=== PATIENT | male | born 1990 | race Caucasian/White ===

== ENCOUNTER 2020-04-18 09:23 | Emergency (ER) | payer OTHER, SELFPAY ==
[2020-04-18 09:35] VITALS: BP 162/95; PULSE 82; RESP 17; TEMP 36.4; O2SAT 97; BMI 28.2
--- NOTE | 2020-04-18 09:48 | XR_ITS ---
EXAMINATION: XR KNEE, RIGHT CLINICAL INFORMATION: Status post running/twisting injury. COMPARISON: None TECHNIQUE: Four views of the right knee. FINDINGS: The tricompartment joint space is maintained. No visible acute fracture, dislocation or subluxation. No loose bodies or joint effusion seen. XR/XR knee RT 4V IMPRESSION: Unremarkable right knee exam.
--- NOTE | 2020-04-18 09:49 | ED_ITS ---
HPI - Extremity Injury (Lower) General Chief Complaint: Extremity Injury, Lower Stated Complaint: knee injury Time Seen by Provider: 04/18/20 09:30 Source: patient Mode of arrival: ambulatory History of Present Illness HPI Narrative: 29-year-old male presenting to ED complaining of right knee pain s/p twisting injury yesterday. Patient reports he was running when landed on foot wrong way and heard a large pop in right knee. Reports pain with movement/ bending. Denies direct trauma or injury to knee, numbness, tingling, weakness, injury to other area MD complaint: knee injury Related Data Previous Rx's Medication Instructions Recorded naproxen 500 mg PO BID PRN 10 Days #20 tab 04/18/20 Allergies Allergy/AdvReac Type Severity Reaction Status Date / Time Sulfa (Sulfonamide Allergy Unknown Hives Verified 04/18/20 09:38 Antibiotics) No Known Allergies Allergy Unverified 03/10/20 16:57 Sulfacet-R Allergy Unknown Hives Uncoded 04/18/20 09:38 Sulfamethoxazole Allergy Unknown rash Uncoded 07/06/19 00:00 Review of Systems Review of Systems: Constitutional: No Weight loss, No Fever, No Chills Musculoskeletal: +joint pain, No Myalgias,+Joint Swelling Skin: No Skin Lesions, No rash Neuro: No Weakness, No Numbness, No Paresthesias Yes all other systems are reviewed and are negative [facility] Past Medical History Attestation statement: The following information was validated with the patient. Social History Social History Advance Directives: No Advance Directives Information Provided: No Physical Exam Vital Signs: Vital Signs: Vital Signs Temp Pulse Resp BP Pulse Ox 04/18/20 09:35 97.6 F 82 17 162/95 H 97 Body Mass Index 28.2 Const: General: cooperative and healthy appearing Orientation/consciousne ss: patient oriented x3 Limitations: no limitations HENMT: Head: Yes normal to inspection Ears: hearing grossly normal bilaterally General nose exam: Normal external nose present Face and sinus: Yes normal facial exam Eyes: General: appearance normal, both eyes and all related structures EOM: EOMs intact bilaterally Neck: Neck: Yes normal visual inspection Resp: Effort & Inspection: normal respiratory effort Cardio: Peripheral pulses: Peripheral pulses 2+ throughout Skin: Rashes: no rashes Wounds: no wounds Neuro: Other: slow steady gait General: patient oriented x3 Extrem: General: Yes normal to inspection Right lower extremity: knee Details: tenderness Location: of the medial joint line and normal ROM; no crepitus and no deformity Course Course Course Narrative: -- x-ray unremarkable. Results discussed with patient as well as close follow-up with PCP/Orthopedics MDM - Extremity Injury (Lower) MDM Narrative Medical decision making narrative: likely ligamental/ tendon or meniscal injury Discharge Plan Discharge Clinical Impression: Acute knee pain Qualifiers: Laterality: right Qualified Code(s): M25.561 - Pain in right knee Patient Disposition: Home, Self-Care Instructions: Knee Pain (ED) Additional Instructions: your x-rays did not show any acute fractures, breaks, or dislocation Naproxen as an anti-inflammatory /pain medication, take with food In addition take Tylenol home Ice and elevate her knee Wear Magdaleno wrap home as needed for comfort You need to see her primary care doctor or Orthopedics for likely an MRI outpatient to evaluate your ligament/tendons. If pain persists or worsen, he develops weakness, numbness or tingling return to the ED Prescriptions: New naproxen 500 mg tablet 500 mg PO BID PRN (Reason: pain) 10 Days Qty: 20 RF: 0 Referrals: Gerson Klein MD [Primary Care Provider] - 2 days Urban Robles MD [Physician] - 1 week
[2020-04-18] MEDS: oxyCODONE HCl Immed Release 5 MG TABLET PO (11:11)
== END 2020-04-18 11:16 | disposition home or self-care (01) ==
PROVIDERS: Emergency Provider Emergency Medicine; PCP Internal Medicine
DX: M25.561 Pain in right knee (principal)
CPT/HCPCS: 73564; 99282; 99283

== ENCOUNTER 2024-02-05 14:29 | Outpatient (AMB) | payer OTHER, SELFPAY ==
[2024-02-05 14:32] VITALS: BP 136/70; PULSE 76; O2SAT 98; BMI 28.8
--- NOTE | 2024-02-05 14:32 | MHC.PC.OV ---
Vital Signs 02/05/24 14:32 Height 6 ft 1.5 in Weight 221 lb BMI 28.8 BP 136/70 Blood Pressure Location Lt brachial Position Sitting Pulse 76 Pulse Source Pulse Oximeter Pulse Oximetry (%) 98 Oxygen Delivery Method Room Air Intake Visit Reasons: Vasectomy Chuck Boner Required: No Allergies Sulfa (Sulfonamide Antibiotics) Allergy (Unknown, Verified 02/05/24 14:33) Hives Tobacco use date assessed: 02/05/24 Dental Screening Dental Screen Date: 12/13/22 HPI Vasectomy HPI Details 33-year-old male presents to the office requesting a referral for a vasectomy. Patient is and his has a child. His is 40 years old. Patient has decided that he does not want to have any children. He does not want his to be on control pills. 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 1. Little interest or pleasure in doing things: not at all 2. Feeling down, depressed, or hopeless: not at all 3. Trouble falling or staying asleep, or sleeping too much: not at all 4. Feeling tired or having little energy: not at all 5. Poor appetite or overeating: not at all 6. Feeling bad about yourself - or that you are a failure or have let yourself or your family down: not at all 7. Trouble concentrating on things, such as reading the newspaper or watching television: not at all 8. Moving or speaking so slowly that other people could have noticed. Or the opposite - being so fidgety or restless that you have been moving around a lot more than usual: not at all 9. Thoughts that you would be better off or of hurting yourself in some way: not at all Total score: 0 Depression Screening Interpretation: Negative Depression Screening Done: Yes Source: Developed by Drs. Paolo Levy, Terrie Purdy, Artemio Bermudez and colleagues, with an educational terry from [employer]. Thrive Questionnaire Date Thrive assessed: 12/13/22 AUDIT C Alcohol Use Questionnaire (AUDIT-C) 1. How often do you have a drink containing alcohol?: Never 3. How often do you have six or more drinks on one occasion?: Never Total Score: 0 FROYLAN-7 AMB Questionnaire FROYLAN-7 Date FROYLAN - 7 assessed: 12/13/22 Source: Developed by Drs. Paolo Levy, Terrie Purdy, Artemio Bermudez and colleagues, with an educational terry from [employer]. Physical exam (Primary Care) Vital Signs: Last Vital Signs Pulse 76 02/05/24 14:32 BP 136/70 02/05/24 14:32 Pulse Ox 98 02/05/24 14:32 Oxygen Delivery Method Room Air 02/05/24 14:32 BMI result Body Mass Index 28.8 Tobacco/Smoking Status: Tobacco use Status Tobacco use date assessed 02/05/24 02/05/24 14:33 Patient Tobacco Use Status Former Tobacco user 02/05/24 14:33 e-Cigarette/Vaping Use Never Used 02/05/24 14:33 PHQ-9: PHQ-9 Score PHQ-9: Total score 0 02/05/24 14:38 Depression Screening Interpretation: Negative Thrive Assessment: Date of Thrive Assessment Date Thrive assessed 12/13/22 02/05/24 14:33 Const Other: Apart from checking blood pressure no other exam was done Assessment and Plan Assessment & Plan (1) Vasectomy evaluation: Code(s): Z30.09 - Encounter for other general counseling and advice on contraception Plan: 15 minutes spent on counseling the patient. Patient has no children currently. He understands by getting the procedure he may never have children in the future. Patient is requesting that he would like to proceed with the procedure. An appointment for the same was provided. Orders: Referrals Urology Referral Z30.09 - Encounter for other general counseling and advice on contraception Coding Level of Care Code Est Pt Level 3 (85250) Complex EM visit Add On G2211 Diagnoses Vasectomy evaluation Z30.09
== END 2024-02-05 16:40 | disposition home or self-care (01) ==
PROVIDERS: PCP Internal Medicine; Visit Provider Internal Medicine
DX: Z30.09 Encounter for other general counseling and advice on contraception (principal)
CPT/HCPCS: 99213

== ENCOUNTER 2024-10-15 15:35 | Outpatient (AMB) | payer OTHER, SELFPAY ==
--- NOTE | 2024-10-15 15:46 | MHC.PC.OV ---
Vital Signs 10/15/24 15:48 Height 6 ft 1.5 in Weight 222 lb BMI 28.9 BP 130/70 Blood Pressure Location Lt brachial Position Sitting Pulse 71 Pulse Source Pulse Oximeter Temp 97.3 F Temp Source Temporal Artery Scan Pulse Oximetry (%) 98 Oxygen Delivery Method Room Air Intake Visit Reasons: annual exam Intake Note: Patient is here today for a physical. Bobbin Washer Required: No Box Loader: Not Required per policy Accompanied by: Self / Same As Patient Allergies Sulfa (Sulfonamide Antibiotics) Allergy (Unknown, Verified 10/15/24 16:44) Hives Medication List - Last Reconciled 10/15/24 by Samaria Harris PA-C sildenafil (Viagra) 50 mg PO DAILY PRN Tobacco use date assessed: 10/15/24 Dental Screening Dental Screen Date: 10/15/24 Did you have a dental visit in the last 12 months?: Yes Did you have a dental problem in the last 6 months where you did not have access to dental care?: No Was dental information given to patient?: Patient has dentist HPI annual exam HPI Details The patient is a 34-year-old male presenting for a routine physical exam. He previously considered a vasectomy, but the plan has been canceled, as the decision about having more children remains unresolved. He is not experiencing any symptoms of erectile dysfunction currently and chooses not to use medications presently. Although he does not plan to pursue a vasectomy or immediate urological follow-up, the option for medication refills remains open. The patient denies any family history of colon cancer or breast cancer. The visit is aimed at establishing baseline laboratory values through comprehensive blood work including cholesterol and electrolyte evaluations. A request for evaluation of testosterone levels has been made, which will include a PSA test. The patient has been instructed to complete blood work under fasting conditions. Social History - Family planning: Previously considered vasectomy; currently undecided about having more children. - Partner has one child from a previous relationship; patient acts as a stepfather. [facility] Medical History (Updated 10/15/24 @ 16:49 by Samaria Harris PA-C) Overweight with body mass index (BMI) of 28 to 28.9 in adult Surgical History History of eye surgery History of wisdom tooth extraction History of cystostomy History of shoulder surgery Family History Other Mental health disorder Substance use disorder Social History Housing: House Alcohol intake: never Patient Tobacco Use Status: Former Tobacco user e-Cigarette/Vaping Use: Never Used Second Hand Smoke Exposure: Yes Substance Use Type: Marijuana service: No Current occupational status: employed 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 1. Little interest or pleasure in doing things: nearly every day 2. Feeling down, depressed, or hopeless: several days 3. Trouble falling or staying asleep, or sleeping too much: several days 4. Feeling tired or having little energy: several days 5. Poor appetite or overeating: several days 6. Feeling bad about yourself - or that you are a failure or have let yourself or your family down: not at all 7. Trouble concentrating on things, such as reading the newspaper or watching television: not at all 8. Moving or speaking so slowly that other people could have noticed. Or the opposite - being so fidgety or restless that you have been moving around a lot more than usual: not at all 9. Thoughts that you would be better off or of hurting yourself in some way: not at all Total score: 7 Depression Screening Interpretation: Positive Depression Screening Follow-up: Existing condition and Declines treatment Depression Screening Done: Yes 06358 - PHQ-9 Billing: Yes Source: Developed by Drs. Paolo Levy, Terrie Purdy, Artemio Bermudez and colleagues, with an educational terry from [employer]. Thrive Questionnaire Date Thrive assessed: 10/15/24 I am a: Patient What is your living situation today?: I have a steady place to live Within the past 12 months, did the food you bought not last and you didn't have the money to get more?: Never true Within the past 12 months, did you worry whether your food would run out before you got money to buy more?: Never true Do you have trouble paying for medicines?: No Do you have trouble getting transportation to medical appointments?: No Do you have trouble paying your heating and electricity bill?: No Do you have trouble taking care of your child, family member or friend?: No Do you have trouble with day-to-day activities such as bathing, preparing meals, shopping, managing finances, etc.?: No Are you currently unemployed and looking for a job?: No Are you interested in more education?: No Please select the resources that you would like help with: None Currently or been in a relationship where the following occur: No concerns reported THRIVE Score: 0 AUDIT C Alcohol Use Questionnaire (AUDIT-C) 1. How often do you have a drink containing alcohol?: Never Total Score: 0 Score Reviewed/Action Taken: No FROYLAN-7 AMB Questionnaire FROYLAN-7 Date FROYLAN - 7 assessed: 10/15/24 Feeling nervous, anxious, or on edge: 1 = Several days Not being able to stop or control worryin = Several days Worrying too much about different things: 1 = Several days Trouble relaxin = Several days Being so restless that it is hard to sit still: 0 = Not at all Becoming easily annoyed or irritable: 1 = Several days Feeling afraid as if something awful might happen: 1 = Several days Total FROYLAN-7 score (0-4 normal; 5-9 mild; 10-14 moderate; 15-21 severe): 6 Source: Developed by Drs. Paolo Levy, Terrie Purdy, Artemio Bermudez and colleagues, with an educational terry from [employer]. FROYLAN-7 Assessment Billing FROYLAN-7 Assessment Tool: FROYLAN-7 Assessment 69282 Review of Systems Const Details: - Gastrointestinal: Denies black or bloody stools, denies unintentional weight loss. - Genitourinary: Denies urinary problems. - Cardiovascular: Denies chest pain. - Respiratory: Denies shortness of breath. - Neurological/Psychiatric: Denies anxiety or depression beyond normal stress experiences. Physical exam (Primary Care) Vital Signs: Last Vital Signs Temp 97.3 F 10/15/24 15:48 Pulse 71 10/15/24 15:48 BP 130/70 10/15/24 15:48 Pulse Ox 98 10/15/24 15:48 Oxygen Delivery Method Room Air 10/15/24 15:48 Care Plan Goal for BP management: <130/90 at Goal BMI result Body Mass Index 28.9 BMI Assessment/Plan discussion: High BMI High, discussed plan: lifestyle, weight reduction, dietary, physical activity and alcohol moderation Tobacco/Smoking Status: Tobacco use Status Tobacco use date assessed 10/15/24 10/15/24 15:51 Patient Tobacco Use Status Former Tobacco user 10/15/24 15:51 e-Cigarette/Vaping Use Never Used 10/15/24 15:51 PHQ-9: PHQ-9 Score PHQ-9: Total score 7 10/15/24 15:51 Depression Screening Interpretation: Positive Depression Screening Follow-up: Existing condition and Declines treatment Thrive Assessment: Date of Thrive Assessment Date Thrive assessed 10/15/24 10/15/24 15:51 Currently or been in a relationship where the following occur: No concerns reported Const Other: Appearance: Alert. Oriented X3. No acute distress. Head: Normal external exam. Normocephalic. Atraumatic. Eyes: Pupils are equal, round, and reactive to light. Extraocular movements intact. Conjunctiva and sclera normal. Eyelids normal. Ears: External auditory canal normal. Tympanic membranes normal. Throat: Pharynx normal. Uvula midline. Moist mucous membranes. Neck: Normal inspection. Neck supple. Full range of motion. No meningeal signs. No neck mass noted. Cardiovascular: Normal heart rate and rhythm. Heart sound normal. No murmurs noted. Pulses normal throughout. Respiratory: No respiratory distress. Painless inspiration. Breath sounds normal. No wheezes/rales/rhonchi noted. Chest nontender. No accessory muscle usage noted or decreased air movement noted. Abdomen: Soft and nontender. Bowel sounds normal in all 4 quadrants. No distention noted. No organomegaly noted. No visible injury noted. Back: No costovertebral angle tenderness. Full range of motion noted. Skin: Skin warm and dry. Normal skin color. Normal skin turgor. No rashes/lesions/lacerations noted. Extremities: No lower extremity edema. Extremities exhibit normal range of motion. Extremities nontender. Neuro: Oriented X 3. No motor deficit. No sensory deficit. Reflexes normal. Coding Level of Care Code Est Pt Prev Care 18-39y(35278) Diagnoses Annual physical exam Z00.00 Overweight with body mass index (BMI) of 28 to 28.9 in adult E66.3; Z68.28 Additional Codes PHQ-9 - 49184 - PHQ-9 Billing: Yes ([id number]) FROYLAN-7 Assessment Billing - FROYLAN-7 Assessment Tool: FROYLAN-7 Assessment 25740 ([id number]) Assessment & Plan Assessment & Plan (1) Annual physical exam: Code(s): Z00.00 - Encounter for general adult medical examination without abnormal findings Category: Medical Plan: Patient had a normal annual physical exam today. Will order labs which include CBC, CMP, TSH with reflex T4, lipid panel, PSA, ESR, CRP, magnesium, vitamin B12 and folate, vitamin-D and patient specifically requested testosterone levels to be tested. Patient to return in 1 year if all labs are within normal limits. Patient understands agrees with this plan. (2) Overweight with body mass index (BMI) of 28 to 28.9 in adult: Code(s): E66.3 - Overweight; Z68.28 - Body mass index [BMI] 28.0-28.9, adult Category: Medical Plan: Patient to improve his diet and exercise regimen. Condition is chronic and stable will continue to monitor. Plan Plan Patient was informed and verbally consented to the use of an ambient scribe for clinic note documentation during this visit. 1. Erectile Dysfunction The patient currently denies erectile dysfunction symptoms and manages without medication. Medication refills remain an option. Monitoring and reassessment may occur as symptoms dictate. I discussed with the patient the current lack of symptoms or need for erectile dysfunction medication; however, the option remains for refills should his symptoms change. We discussed family planning and his current indecision regarding vasectomy as both partners contemplate having children. I explained the recommended blood tests for establishing a health baseline, including testosterone levels, and instructed to complete these fasting. No immediate interventions or referrals are considered necessary, and I advised on standard follow-up care. Orders: Orders C Reactive Protein Today Z00.00 - Encounter for general adult medical examination without abnormal findings Comprehensive [place]. Panel Fast Today Z00.00 - Encounter for general adult medical examination without abnormal findings Erythrocyte Sedimentation Rate Today Z00.00 - Encounter for general adult medical examination without abnormal findings PSA,Total (Free>4and<10) Today Z00.00 - Encounter for general adult medical examination without abnormal findings Lipid Panel Today Z00.00 - Encounter for general adult medical examination without abnormal findings Liver Panel Today Z00.00 - Encounter for general adult medical examination without abnormal findings Complete Blood Count Auto Diff Today Z00.00 - Encounter for general adult medical examination without abnormal findings Magnesium Today Z00.00 - Encounter for general adult medical examination without abnormal findings Testosterone, Total Today Z. - Encounter for general adult medical examination without abnormal findings Hemoglobin A1c Today Z00.00 - Encounter for general adult medical examination without abnormal findings Vitamin B12 and Folate Today Z00.00 - Encounter for general adult medical examination without abnormal findings Vitamin D 25-OH Total Today Z00.00 - Encounter for general adult medical examination without abnormal findings TSH reflex Free T4 Today Z00.00 - Encounter for general adult medical examination without abnormal findings DHEA Sulfate Today Z00.00 - Encounter for general adult medical examination without abnormal findings Dihydrotestosterone Today Z00.00 - Encounter for general adult medical examination without abnormal findings Patient Instructions: - Complete blood work after fasting for at least 12 hours. - Return for follow-up within one year or sooner if symptoms develop. - Medication refills for erectile dysfunction remain available if needed. - Discuss any new symptoms or healthcare concerns with me promptly. - Consider family planning options and communicate any changes or decisions.
[2024-10-15 15:48] VITALS: BP 130/70; PULSE 71; TEMP 36.3; O2SAT 98; BMI 28.9
== END 2024-10-15 16:29 | disposition home or self-care (01) ==
LOC: HO.HMCH 15:36
PROVIDERS: PCP Internal Medicine; Visit Provider Physician Assistant Medical
DX: Z00.00 Encounter for general adult medical examination without abnormal findings (principal); E66.3 Overweight; Z68.28 Body mass index [BMI] 28.0-28.9, adult

== ENCOUNTER → 2024-10-15 15:35 | Outpatient (BNVA) | payer OTHER, SELFPAY | PROVIDERS: PCP Internal Medicine; Visit Provider Physician Assistant Medical | DX: Z00.00 Encounter for general adult medical examination without abnormal findings (principal); E66.3 Overweight; Z68.28 Body mass index [BMI] 28.0-28.9, adult | CPT/HCPCS: 96127 ==